=== PATIENT | female | born 1940 | race Caucasian/White ===

== ENCOUNTER → 2017-09-24 | Outpatient (CLI) | payer OTHER ==
[2015-03-01 18:05] VITALS: BP 107/53
[~2017-09-24] MED LIST: ALPR0.5T PO; PRAV40TA2 PO; SERT25TA PO
[2017-09-24 15:21] LABS: BASO # 0.1 x10^3/uL (0.0-0.2); BASO % 1 % (0-3); EOS # 0.2 x10^3/uL (0.0-0.7); EOS % 2 % (0-3); HEMATOCRIT 37.7 % (36.0-47.0); HEMOGLOBIN 12.6 g/dL (12.0-15.5); LYMPH # 1.8 x10^3/uL (1.0-4.8); LYMPH % 21 % (24-48); MEAN CORPUSCULAR HEMOGLOBIN 29 pg (25-35); MEAN CORPUSCULAR HGB CONC 34 g/dL (31-37); MEAN CORPUSCULAR VOLUME 88 fL (79-100); MONO # 0.5 x10^3/uL (0.0-1.1); MONO % 6 % (0-9); NEUT # 5.8 x10^3uL (1.8-7.7); NEUT % 70 % (31-73); PLATELET COUNT 272 x10^3/uL (140-400); RED CELL DISTRIBUTION WIDTH 15.6 % (11.5-14.5); WHITE BLOOD COUNT 8.4 x10^3/uL (4.0-11.0)
== END | disposition home or self-care (01) ==
LOC: LAB 14:46
PROVIDERS: ATTEND Internal Medicine Gastroenterology
DX: D64.9 Anemia, unspecified (principal); F17.200 Nicotine dependence, unspecified, uncomplicated
CPT/HCPCS: 36415; 82728; 85025

== ENCOUNTER → 2019-11-29 | Outpatient (CLI) | payer MEDICARE ==
[2015-03-01 18:05] VITALS: BP 107/53
--- NOTE | 2019-11-29 11:10 | RAD ---
2 views of the left femur compared to similar exam dated November 01, 2019 for fracture follow-up. FINDINGS: Extensive postsurgical changes are redemonstrated, with no hardware fractures identified. There is no change to the near-anatomic alignment of the distal femoral fragment with persistent subtle valgus angulation, and there has been some interval callus formation to suggest ongoing healing. IMPRESSION: 1. Postsurgical and postoperative changes of the femur are stable, however there has been some interval callus formation to suggest ongoing healing. Electronically signed by: Cristi Silvestre MD (11/29/2019 11:07 AM) [id number]
== END ==
LOC: DXRAD 10:27
PROVIDERS: ATTEND Physician Assistant
DX: S72.452A Displaced supracondylar fracture without intracondylar extension of lower end of left femur, initial encounter for closed fracture (principal); M25.775 Osteophyte, left foot; X58.XXXA Exposure to other specified factors, initial encounter; Y93.89 Activity, other specified; Y92.89 Other specified places as the place of occurrence of the external cause; Y99.8 Other external cause status
CPT/HCPCS: 73552

== ENCOUNTER → 2019-12-27 | Outpatient (CLI) | payer MEDICARE ==
[2015-03-01 18:05] VITALS: BP 107/53
--- NOTE | 2019-12-27 10:43 | RAD ---
Examination: 1. Left knee 2 views. 2. AP standing bilateral knees. Indication: Left knee pain. COMPARISON: Left femur x-rays of 12/19/2019 and left hip x-ray of 03/01/2015. FINDINGS: AP standing bilateral knees shows stable appearance to a long lateral plate and screw construct fixation of the distal left femoral fracture which shows a still visible fracture line with undulant margins. A proximal fibular fracture in the left knee appears healed on this available view. The right knee is normal alignment and mineralization with no evidence of fracture. The alignment of the knees appears symmetric and there is no subchondral sclerosis or joint space narrowing identified in either knee. The 2 views of the left knee show normal alignment of the patella relative to the trochlear groove and no evidence of a significant joint effusion. There is some irregularity along the anterior surface of the distal femur without malalignment. IMPRESSION: Unremarkable single view right knee and partial healing of the distal left femoral metadiaphyseal fracture status post plate and screw construct fixation in anatomic alignment. Electronically signed by: Den Collins MD (12/27/2019 10:40 AM) [id number]
== END ==
LOC: RAD 09:59
PROVIDERS: ATTEND Physician Assistant
DX: S72.302D Unspecified fracture of shaft of left femur, subsequent encounter for closed fracture with routine healing (principal); X58.XXXD Exposure to other specified factors, subsequent encounter
CPT/HCPCS: 73560; 73565

== ENCOUNTER → 2020-02-21 | Outpatient (CLI) | payer MEDICARE ==
[2015-03-01 18:05] VITALS: BP 107/53
--- NOTE | 2020-02-21 14:43 | RAD ---
Indications: Left hip and left knee pain. TWO-VIEW STUDY OF THE LEFT HIP AND AP VIEW OF THE PELVIS: The 2 views of the left hip included the entire length of the left femur due to a long lateral metallic stabilizer plate and multiple screws. There is an old healed oblique fracture of the distal left femoral metadiaphysis. No acute-appearing fracture is evident. Intramedullary kimi and interlocking screw is seen within the proximal left femur. Old healed fracture of the intertrochanteric area is seen. No dislocation or lytic process is seen. AP view of the pelvis demonstrates no acute fracture or diastases or lytic process. IMPRESSION: Old healed fracture of the distal left femur. No acute osseous abnormality. No significant arthritic change of the left hip joint is seen. 3 VIEW STUDY OF THE LEFT KNEE FINDINGS: Findings of the distal left femur as discussed above. Otherwise no acute fracture is seen. Subacute healing fracture of the proximal left fibular metaphysis is seen which is nondisplaced. No significant arthritic change is evident. No significant left knee joint effusion is seen. IMPRESSION: Subacute healing fracture of the proximal left fibula. No acute osseous abnormality. Electronically signed by: Charli Gonzales MD (02/21/2020 2:39 PM) [id number]
== END | disposition home or self-care (01) ==
LOC: DXRAD 10:41
PROVIDERS: ATTEND Physician Assistant
DX: S82.832D Other fracture of upper and lower end of left fibula, subsequent encounter for closed fracture with routine healing (principal); S72.402D Unspecified fracture of lower end of left femur, subsequent encounter for closed fracture with routine healing; X58.XXXD Exposure to other specified factors, subsequent encounter
CPT/HCPCS: 73502; 73562